=== PATIENT | male | born 1955 | race Caucasian/White ===

== ENCOUNTER → 2016-07-30 07:09 | Outpatient (CLI) | payer BC ==
[2016-07-30 07:46] LABS: HEMOGLOBIN A1C 6.5 % (4.8-6.0)
[2016-07-30 08:11] LABS: ALBUMIN 3.9 g/dL (3.4-5.0); ALKALINE PHOSPHATASE 96 U/L (46-116); ALT (SGPT) 30 U/L (10-68); BILIRUBIN - TOTAL 0.44 mg/dL (0.2-1.3); CALC OSMOLALITY 285 mosm/kg (275-300); CALCIUM 9.2 mg/dL (8.5-10.1); CARBON DIOXIDE 27.4 mmol/L (21.0-32.0); CHLORIDE - SERUM 104 mmol/L (98-107); CHOL - HDL RATIO 5.8 ratio (2.3-4.9); CHOLESTEROL, TOTAL 262 mg/dL (0-200); GLUCOSE 144 mg/dL (74-106); HDL CHOLESTEROL 45 mg/dL (32-96); LDL CHOLESTEROL 176 mg/dL (0-100); LDL-HDL RATIO 3.9 ratio (1.5-3.5); POTASSIUM - SERUM 4.2 mmol/L (3.5-5.1); PROTEIN - SERUM 7.1 g/dL (6.4-8.2); SODIUM 141 mmol/L (136-145); TRIGLYCERIDE 209 mg/dL (30-200); UREA NITROGEN 19 mg/dL (7-18); eGFR NON AFRICAN AMERICAN 81 mL/min (90-120)
== END ==
LOC: D.LAB 07:09
PROVIDERS: Family Medicine
DX: Z00.00 Encounter for general adult medical examination without abnormal findings (principal); E11.9 Type 2 diabetes mellitus without complications; E78.4 Other hyperlipidemia; I10 Essential (primary) hypertension

== ENCOUNTER → 2016-08-01 15:49 | Outpatient (CLI) | payer BC ==
[2016-08-03 19:08] LABS: TESTOSTERONE - SERUM 141 ng/dL (348-1197)
== END | disposition home or self-care (01) ==
LOC: D.LAB 15:49
PROVIDERS: Family Medicine
DX: E29.1 Testicular hypofunction (principal)

== ENCOUNTER → 2017-12-23 15:30 | Outpatient (CLI) | payer BC ==
[2017-12-23 16:31] LABS: CHOL - HDL RATIO 5.3 ratio (2.3-4.9); LDL-HDL RATIO 2.9 ratio (1.5-3.5)
== END | disposition home or self-care (01) ==
LOC: D.LAB 12-16 08:15
PROVIDERS: Family Medicine
DX: E78.4 Other hyperlipidemia (principal); E11.9 Type 2 diabetes mellitus without complications

== ENCOUNTER → 2018-04-15 09:16 | Outpatient (CLI) | payer BC ==
[2018-04-17 07:38] LABS: CHOL - HDL RATIO 4.3 ratio (2.3-4.9); LDL-HDL RATIO 2.1 ratio (1.5-3.5)
== END | disposition home or self-care (01) ==
LOC: D.LAB 09:16
PROVIDERS: Family Medicine
DX: I10 Essential (primary) hypertension (principal); E11.9 Type 2 diabetes mellitus without complications

== ENCOUNTER → 2018-04-17 06:54 | Outpatient (CLI) | payer BC | END | disposition home or self-care (01) | LOC: D.LAB 06:54 | DX: E78.5 Hyperlipidemia, unspecified (principal); I10 Essential (primary) hypertension; E11.9 Type 2 diabetes mellitus without complications ==

== ENCOUNTER → 2018-05-07 18:17 | Outpatient (CLI) | payer BC | END | disposition home or self-care (01) | LOC: D.LABREF 18:17 | DX: L72.0 Epidermal cyst (principal) ==

== ENCOUNTER → 2018-07-24 06:43 | Outpatient (CLI) | payer BC ==
[2018-07-24 07:46] LABS: CHOL - HDL RATIO 3.2 ratio (2.3-4.9); LDL-HDL RATIO 1.7 ratio (1.5-3.5)
== END | disposition home or self-care (01) ==
LOC: D.LAB 06:43
PROVIDERS: ATTEND Family Medicine
DX: E11.9 Type 2 diabetes mellitus without complications (principal)

== ENCOUNTER → 2018-12-02 07:15 | Outpatient (CLI) | payer BC | END | disposition home or self-care (01) | LOC: D.LAB 07:15 | PROVIDERS: ATTEND Family Medicine | DX: E11.9 Type 2 diabetes mellitus without complications (principal); I10 Essential (primary) hypertension ==

== ENCOUNTER → 2019-06-01 07:20 | Outpatient (CLI) | payer MEDICARE ==
[2019-06-01 08:08] LABS: ANION GAP 12.4 mmol/L (8-16); BILIRUBIN - TOTAL 0.77 mg/dL (0.2-1.3); CALCIUM 9.7 mg/dL (8.5-10.1); CARBON DIOXIDE 30.9 mmol/L (21.0-32.0); CHOL - HDL RATIO 3.9 ratio (2.3-4.9); CREATININE - SERUM 1.1 mg/dL (0.6-1.3); LDL-HDL RATIO 2.1 ratio (1.5-3.5); POTASSIUM - SERUM 4.3 mmol/L (3.5-5.1); PROTEIN - SERUM 7.7 g/dL (6.4-8.2)
== END | disposition home or self-care (01) ==
LOC: D.LAB 07:20
PROVIDERS: ATTEND Family Medicine
DX: E11.9 Type 2 diabetes mellitus without complications (principal); F52.8 Other sexual dysfunction not due to a substance or known physiological condition; I10 Essential (primary) hypertension; E23.6 Other disorders of pituitary gland

== ENCOUNTER → 2019-12-17 06:06 | Outpatient (CLI) | payer MEDICARE | END | disposition home or self-care (01) | LOC: D.LAB 06:06 | PROVIDERS: ATTEND Family Medicine | DX: E23.6 Other disorders of pituitary gland (principal); I10 Essential (primary) hypertension; E78.49 Other hyperlipidemia; R53.83 Other fatigue; E11.9 Type 2 diabetes mellitus without complications; F52.8 Other sexual dysfunction not due to a substance or known physiological condition ==

== ENCOUNTER → 2020-10-19 06:14 | Outpatient (CLI) | payer MEDICARE ==
[2020-10-19 06:46] LABS: BASOPHILS 0.8 % (0-2); EOSINOPHILS 2.8 % (0-7); HEMATOCRIT 43.4 % (42.0-54.0); HEMOGLOBIN 14.8 g/dL (13.5-17.5); LYMPHOCYTES 33.4 % (15-50); MCH 31.8 pg (26.0-34.0); MCV 93.5 fL (80.0-100.0); MEAN PLATELET VOLUME 6.8 fL (7.4-10.4); MONOCYTES 8.1 % (2-11); NEUTROPHILS 54.9 % (40-80); PLATELET COUNT 296 10x3/uL (130-400); RBC 4.65 10x6/uL (4.20-6.10); RDW 14.2 % (11.5-14.5)
[2020-10-19 07:07] LABS: BILIRUBIN NEGATIVE (NEGATIVE); KETONE NEGATIVE (NEGATIVE); NITRITE NEGATIVE (NEGATIVE); UROBILINOGEN NORMAL mg/dL (< 2)
[2020-10-19 07:13] LABS: ALBUMIN 3.7 g/dL (3.4-5.0); ALKALINE PHOSPHATASE 91 U/L (30-120); ALT (SGPT) 29 U/L (10-68); BILIRUBIN - TOTAL 0.54 mg/dL (0.2-1.3); CALC OSMOLALITY 284 mosm/kg (275-300); CARBON DIOXIDE 26.4 mmol/L (21.0-32.0); CHLORIDE - SERUM 104 mmol/L (98-107); CHOL - HDL RATIO 3.3 ratio (2.3-4.9); CHOLESTEROL, TOTAL 166 mg/dL (0-200); GLUCOSE 165 mg/dL (74-106); HDL CHOLESTEROL 51 mg/dL (32-96); LDL CHOLESTEROL 76 mg/dL (0-100); LDL-HDL RATIO 1.5 ratio (1.5-3.5); POTASSIUM - SERUM 4.2 mmol/L (3.5-5.1); PROTEIN - SERUM 7.3 g/dL (6.4-8.2); SODIUM 139 mmol/L (136-145); THYROID STIMULATING HORMONE 1.54 uIU/mL (0.36-3.74); TRIGLYCERIDE 199 mg/dL (30-200); UREA NITROGEN 21 mg/dL (7-18); eGFR NON AFRICAN AMERICAN 80 mL/min (90-120)
[2020-10-20 10:12] LABS: MICROALBUMIN - RANDOM URINE 4.9 ug/mL (Not Estab.)
== END | disposition home or self-care (01) ==
LOC: D.LAB 06:14
PROVIDERS: ATTEND Family Medicine
DX: E11.9 Type 2 diabetes mellitus without complications (principal); I10 Essential (primary) hypertension; E23.6 Other disorders of pituitary gland; R78.4 Finding of other drugs of addictive potential in blood